=== PATIENT | female | born 1995 | race Caucasian/White ===

== ENCOUNTER 2018-03-28 10:31 | Emergency (ER) | payer OTHER ==
[2018-03-28 11:11] VITALS: BP 104/65
--- NOTE | 2018-03-28 11:19 | ED ---
Throat Pain/Nasal Congestion - HPI Summary HPI Summary: sore throat for the last several days. had a fever last week, associated with a cough . cough resolved, now with sore throat - History of Current Complaint Chief Complaint: UCGeneralIllness Time Seen by Provider: 03/28/18 10:45 - Allergies/Home Medications Allergies/Adverse Reactions: Allergies Allergy/AdvReac Type Severity Reaction Status Date / Time No Known Allergies Allergy Verified 03/28/18 10:55 Home Medications: Home Medications Etonogest/Eth.estradiol (Nf) [Nuvaring Vaginal Ring] 1 % VAGINAL MONTHLY [History Confirmed 03/28/18] PMH/Surg Hx/FS Hx/Imm Hx Previously Healthy: Yes Infectious Disease History: No Infectious Disease History: Denies: Traveled Outside the [place] in Last 30 Days - Social History Alcohol Use: Weekly Substance Use Type: Reports: None Smoking Status (MU): Never Smoked Tobacco Review of Systems Positive: Fever Eyes: Negative Positive: Sore Throat Cardiovascular: Negative Respiratory: Negative Gastrointestinal: Negative Genitourinary: Negative Musculoskeletal: Negative Skin: Negative All Other Systems Reviewed And Are Negative: Yes Physical Exam Triage Information Reviewed: Yes Vital Signs On Initial Exam: Initial Vitals Temp Pulse Resp BP Pulse Ox 36.6 C 120 20 104/65 100 03/28/18 10:52 03/28/18 10:52 03/28/18 10:52 03/28/18 10:52 03/28/18 10:52 Vital Signs Reviewed: Yes Appearance: Positive: Well-Appearing Skin: Positive: Warm, Dry Head/Face: Positive: Normal Head/Face Inspection Eyes: Positive: Normal ENT: Positive: Normal ENT inspection Neck: Positive: Supple Respiratory/Lung Sounds: Positive: Clear to Auscultation Cardiovascular: Positive: Normal Abdomen Description: Positive: Nontender Diagnostics - Vital Signs Vital Signs Temp Pulse Resp BP Pulse Ox 03/28/18 10:52 36.6 C 120 20 104/65 100 - Laboratory Lab Statement: Any lab studies that have been ordered have been reviewed, and results considered in the medical decision making process. EENT Course/Dx - Diagnoses Provider Diagnoses: Viral pharyngitis Discharge - Sign-Out/Discharge Documenting (check all that apply): Patient Departure All imaging exams completed and their final reports reviewed: Yes - Discharge Plan Condition: Good Disposition: HOME Patient Education Materials: Pharyngitis (ED) Referrals: No Primary Care Phys,NOPCP [Primary Care Provider] - - Billing Disposition and Condition Condition: GOOD Disposition: Home
== END 2018-03-28 11:55 | disposition home or self-care (01) ==
LOC: UCEAST 10:31
DX: J02.8 Acute pharyngitis due to other specified organisms (principal); R50.9 Fever, unspecified
CPT/HCPCS: 87651; 99201; G0463

== ENCOUNTER 2018-03-30 11:11 | Emergency (ER) | payer OTHER ==
[2018-03-30 11:35] VITALS: BP 119/80
--- NOTE | 2018-03-30 12:24 | UC ---
Throat Pain/Nasal Nirav HPI - HPI Summary HPI Summary: Pt c/o of ST that began 03/27/18. Pt was seen here on 03/28/18 and rapid strep was negative. Pt now concerned that she has "white dots" on tonsils - History of Current Complaint Chief Complaint: UCRespiratory Stated Complaint: SORE THROAT Time Seen by Provider: 03/30/18 11:55 Hx Obtained From: Patient Hx Last Menstrual Period: 03/02/18 ?: No Onset/Duration: Gradual Onset, Lasting Days, Still Present Severity: Moderate Pain Intensity: 5 Cough: None Associated Signs & Symptoms: Positive: Dysphagia - Epiglottits Risk Factors Epiglottis Risk Factors: Negative - Allergies/Home Medications Allergies/Adverse Reactions: Allergies Allergy/AdvReac Type Severity Reaction Status Date / Time No Known Allergies Allergy Verified 03/30/18 11:35 PMH/Surg Hx/FS Hx/Imm Hx Previously Healthy: Yes - Surgical History Surgical History: None - Family History Known Family History: Positive: Cardiac Disease - Social History Occupation: Student - [email or web address] Lives: Dormitory/Roommates Alcohol Use: Weekly Substance Use Type: None Smoking Status (MU): Never Smoked Tobacco Have You Smoked in the Last Year: No - Immunization History Vaccination Up to Date: Yes Review of Systems Constitutional: Negative Skin: Negative Eyes: Negative ENT: Sore Throat Respiratory: Negative Cardiovascular: Negative Gastrointestinal: Negative Genitourinary: Negative Motor: Negative Neurovascular: Negative Musculoskeletal: Negative Psychological: Negative Is Patient Immunocompromised?: No All Other Systems Reviewed And Are Negative: Yes Physical Exam Triage Information Reviewed: Yes Appearance: Well-Appearing Vital Signs: Initial Vital Signs Temp 97.6 F 03/30/18 11:31 Pulse 100 03/30/18 11:31 Resp 18 03/30/18 11:31 BP 119/80 03/30/18 11:31 Pulse Ox 100 03/30/18 11:31 Vital Signs Reviewed: Yes Eye Exam: Normal ENT: Positive: Tonsillar swelling, Tonsillar exudate Dental Exam: Normal Neck exam: Normal Respiratory Exam: Normal Cardiovascular Exam: Normal Musculoskeletal Exam: Normal Neurological Exam: Normal Psychological Exam: Normal Diagnostics - Laboratory Diagnostic Studies Completed/Ordered: rapid strep: negative Throat Pain/Nasal Course/Dx - Differential Dx/Diagnosis Differential Diagnosis/HQI/PQRI: Pharyngitis, Tonsillitis Provider Diagnoses: tonsillitis Discharge - Sign-Out/Discharge Documenting (check all that apply): Patient Departure All imaging exams completed and their final reports reviewed: No Studies - Discharge Plan Condition: Stable Disposition: HOME Patient Education Materials: Tonsillitis (ED) Referrals: No Primary Care Phys,NOPCP [Primary Care Provider] - [facility] [Outside] - If Needed - Billing Disposition and Condition Condition: STABLE Disposition: Home
== END 2018-03-30 12:35 | disposition home or self-care (01) ==
LOC: UCEAST 11:11
DX: J03.90 Acute tonsillitis, unspecified (principal)
CPT/HCPCS: 87651; 99211; G0463